=== PATIENT | male | born 1975 | race Caucasian/White ===

== ENCOUNTER 2016-05-24 19:32 | Emergency (ER) | payer OTHER ==
[~2016-05-24 19:32] MED LIST: AMOXICILLIN500 M1 PO; BUPROPION HCL150 MG PO; CATAFLAM50 MG PO; CIPRO XR500 MG; CIPRO500 M1 PO; CIPRO500 M2 PO; CLINDAMYCIN HC300 M2 PO; COMPAZINE10 M PO; COMPAZINE10 MG PO; DICLOFENAC SODI50 MG PO; DICLOFENAC SODI75 MG PO; DOLACET 5/500 C1 CAP; FLEXERIL10 MG PO; FLOMAX0.4 M1 PO; FLOMAX0.4 MG PO; HYDROCHLOROTH12.5 M1 PO; HYDROCHLOROTH12.5 MG PO; HYDROCHLOROTHIA25 MG PO; IBUPROFEN200 M1 PO; LIPITOR10 MG; LIPITOR10 MG PO; LISINOPRIL10 MG; METOPROLOL TART25 M1 PO; MOTRIN600 MG PO; NO MEDS; NORCO 5-325 TA1 EACH PO; NORCO 5/325 TAB1 TAB PO; OXYCODONE/APAP PO; PENICILLIN V P500 M1 PO; PERCOCET 5-3251 EACH PO; PERCOCET 5/3251 TAB PO; PERCOCET 5MG/AP1 TAB PO; TAMSULOSIN HCL0.4 MG PO; TRAMADOL HCL50 MG PO; ULTRAM50 M1 PO; VITAMIN D50000 UNIT PO; VOLTAREN75 MG; VOLTAREN75 MG PO; ZESTRIL10 M3 PO; ZOFRAN ODT4 MG/UDTAB PO; ZOFRAN4 M1 PO; ZOFRAN4 MG PO
[2016-05-24] MEDS ORDERED: TOPROL XL50 M1 PO (19:39)
[2016-05-24 20:33] LABS: URINE BILIRUBIN NEGATIVE (NEG); URINE BLOOD NEGATIVE (NEG); URINE GLUCOSE (UA) NEGATIVE (NEG); URINE KETONE NEGATIVE (NEG); URINE LEUKOCYTE ESTERASE NEGATIVE (NEG); URINE NITRITE NEGATIVE (NEG); URINE PROTEIN NEGATIVE (NEG)
[2016-05-24 20:35] LABS: URINE APPEARANCE CLEAR; URINE COLOR YELLOW
[2016-05-24] MEDS ORDERED: NORCO 5-325 TA1 EACH PO (21:39)
[2016-08-26] MEDS ORDERED: PERCOCET 5-3251 EACH PO (23:58)
[2016-10-04] MEDS ORDERED: PERCOCET 5-3251 EACH PO (23:06)
[2016-10-11] MEDS ORDERED: CYCLOBENZAPRINE5 M1 PO (16:53)
[2016-10-11] MEDS ORDERED: NORCO 5/3251 TAB PO (16:53)
[2016-10-11] MEDS ORDERED: IBUPROFEN800 M1 PO (16:53)
== END 2016-05-24 22:07 ==
LOC: EDMED 19:32
PROVIDERS: Physician Assistant
DX: K56.7 Ileus, unspecified (principal); I10 Essential (primary) hypertension; Z87.442 Personal history of urinary calculi; Z79.899 Other long term (current) drug therapy; Z98.890 Other specified postprocedural states
CPT/HCPCS: J1170; J2270; J2405; J7030

== ENCOUNTER 2016-08-02 20:51 | Emergency (ER) | payer OTHER ==
[~2016-08-02 20:51] MED LIST changes: +TOPROL XL50 M1 PO
[2016-08-02 21:32] LABS: BASO % 0.2 % (0-2); EOS % 1.4 % (0-7); EOSINOPHIL ABSOLUTE COUNT 0.1 tho/cmm (0.0-0.7); HCT-HEMATOCRIT 42.4 % (36.0-53.5); HGB-HEMOGLOBIN 14.9 gm/dl (13.5-17.0); IMMATURE GRANULOCYTES ABSOLUTE 0.01 tho/cmm (0-0.03); IMMATURE GRANULOCYTES PERCENT 0.2 % (0-0.3); LYMPH % 32.2 % (20-45); MCH (MEAN CORPUSCULAR HGB) 31.9 pg (28.0-32.0); MCHC MEAN CORPUSCULAR HGB CONC 35.1 % (32.0-36.0); MCV (MEAN CELL VOLUME) 90.8 fl (82.0-96.0); MEAN PLATELET VOLUME 9.8 cmc (9.4-12.4); MONO % 9.4 % (0-12); MONOCYTE ABSOLUTE COUNT 0.6 tho/cmm (0.0-1.2); NEUTROPHIL ABSOLUTE COUNT 3.5 tho/cmm (1.6-8.0); NEUTROPHIL-AUTOMATED 3.5 tho/cmm (1.6-8.0); NEUTROPHILS % 56.6 % (40-80); PLATELET COUNT 229 tho/cmm (150-450); RED BLOOD COUNT 4.67 mil/cmm (4.40-5.70); RED CELL DISTRIBUTION WIDTH 13.3 % (12.4-16.4); WHITE BLOOD COUNT 6.3 tho/cmm (4.0-10.0)
[2016-08-02 21:43] LABS: ANION GAP 12 mmol/L (0-20); BLOOD UREA NITROGEN 14 mg/dl (6-24); CALCIUM 8.8 mg/dl (8.5-10.5); CARBON DIOXIDE-VENOUS 25 mmol/L (22-32); CHLORIDE 104 mmol/l (96-110); GLUCOSE 97 mg/dL (70-110); POTASSIUM 3.9 mmol/L (3.7-5.1); SODIUM 137 mmol/L (135-145); eGFR VALUE FOR BLACK 86 mL/Min
[2016-08-02 22:10] LABS: URINE BILIRUBIN NEGATIVE (NEG); URINE BLOOD NEGATIVE (NEG); URINE GLUCOSE (UA) NEGATIVE (NEG); URINE KETONE NEGATIVE (NEG); URINE LEUKOCYTE ESTERASE NEGATIVE (NEG); URINE NITRITE NEGATIVE (NEG); URINE PROTEIN NEGATIVE (NEG); URINE SPECIFIC GRAVITY 1.015 (1.003-1.030)
[2016-08-02 22:12] LABS: URINE APPEARANCE HAZY; URINE COLOR YELLOW
[2016-08-26] MEDS ORDERED: PERCOCET 5-3251 EACH PO (23:58)
[2016-10-04] MEDS ORDERED: PERCOCET 5-3251 EACH PO (23:06)
[2016-10-11] MEDS ORDERED: IBUPROFEN800 M1 PO (16:53)
[2016-10-11] MEDS ORDERED: NORCO 5/3251 TAB PO (16:53)
[2016-10-11] MEDS ORDERED: CYCLOBENZAPRINE5 M1 PO (16:53)
== END 2016-08-02 23:25 ==
LOC: EDMED 20:51
PROVIDERS: Physician Assistant
DX: N23 Unspecified renal colic (principal); I10 Essential (primary) hypertension; Z96.0 Presence of urogenital implants; F17.200 Nicotine dependence, unspecified, uncomplicated
CPT/HCPCS: J1170; J1885; J7030

== ENCOUNTER 2016-10-31 19:40 | Emergency (ER) | payer SELFPAY ==
[~2016-10-31] VITALS: Ht 175.3 cm; Wt 147.7 kg
[~2016-10-31 19:40] MED LIST changes: +CYCLOBENZAPRINE5 M1 PO; +IBUPROFEN800 M1 PO; +NORCO 5/3251 TAB PO
[2016-10-31 21:08] LABS: URINE APPEARANCE HAZY; URINE BILIRUBIN NEGATIVE (NEG); URINE BLOOD LARGE (NEG); URINE COLOR YELLOW; URINE GLUCOSE (UA) NEGATIVE (NEG); URINE KETONE NEGATIVE (NEG); URINE LEUKOCYTE ESTERASE POSITIVE (NEG); URINE NITRITE NEGATIVE (NEG); URINE PROTEIN MODERATE (NEG); URINE SPECIFIC GRAVITY 1.025 (1.003-1.030)
[2016-10-31 21:12] LABS: URINE MUCUS 1+
[2016-10-31 21:13] LABS: URINE EPITHELIAL CELLS 0-2 /[HPF] (0-10); URINE RBC 90-120 /[HPF] (0-5)
[2016-10-31 21:20] LABS: BASO % 0.2 % (0-2); EOS % 1.8 % (0-7); EOSINOPHIL ABSOLUTE COUNT 0.1 tho/cmm (0.0-0.7); HCT-HEMATOCRIT 42.6 % (36.0-53.5); HGB-HEMOGLOBIN 14.8 gm/dl (13.5-17.0); IMMATURE GRANULOCYTES ABSOLUTE 0.01 tho/cmm (0-0.03); IMMATURE GRANULOCYTES PERCENT 0.2 % (0-0.3); LYMPH % 30.9 % (20-45); LYMPH ABSOLUTE COUNT 1.9 tho/cmm (0.8-4.5); MCH (MEAN CORPUSCULAR HGB) 31.5 pg (28.0-32.0); MCHC MEAN CORPUSCULAR HGB CONC 34.7 % (32.0-36.0); MCV (MEAN CELL VOLUME) 90.6 fl (82.0-96.0); MEAN PLATELET VOLUME 9.6 cmc (9.4-12.4); MONO % 9.5 % (0-12); MONOCYTE ABSOLUTE COUNT 0.6 tho/cmm (0.0-1.2); NEUTROPHIL ABSOLUTE COUNT 3.6 tho/cmm (1.6-8.0); NEUTROPHIL-AUTOMATED 3.6 tho/cmm (1.6-8.0); NEUTROPHILS % 57.4 % (40-80); PLATELET COUNT 221 tho/cmm (150-450); RED CELL DISTRIBUTION WIDTH 13.9 % (12.4-16.4); WHITE BLOOD COUNT 6.2 tho/cmm (4.0-10.0)
[2016-10-31 21:31] LABS: ANION GAP 9 mmol/L (0-20); BLOOD UREA NITROGEN 14 mg/dl (6-24); CALCIUM 9.1 mg/dl (8.5-10.5); CARBON DIOXIDE-VENOUS 27 mmol/L (22-32); CHLORIDE 105 mmol/l (96-110); CREATININE 0.82 mg/dl (0.60-1.30); GLUCOSE 107 mg/dL (70-110); POTASSIUM 4.3 mmol/L (3.7-5.1); SODIUM 137 mmol/L (135-145); eGFR VALUE FOR BLACK >90 mL/Min
[2016-10-31] MEDS ORDERED: ZOFRAN4 M2 PO (23:52)
[2016-10-31] MEDS ORDERED: NORCO 5/3251 TAB PO (23:52)
== END 2016-11-01 00:15 ==
LOC: EDMED 19:40
PROVIDERS: Emergency Medicine
PROC: BW41ZZZ Ultrasonography of Abdomen and Pelvis (ICD-10-PCS; principal; 2016-10-31)
DX: N20.0 Calculus of kidney (principal)
CPT/HCPCS: J1170; J1885; J2270; J2405; J7030

== ENCOUNTER 2016-11-06 15:19 | Emergency (ER) | payer SELFPAY ==
[~2016-11-06] VITALS: Ht 176.5 cm; Wt 150.0 kg
[~2016-11-06 15:19] MED LIST changes: +ZOFRAN4 M2 PO
[2016-11-06 17:32] LABS: URINE APPEARANCE HAZY; URINE BILIRUBIN NEGATIVE (NEG); URINE BLOOD LARGE (NEG); URINE COLOR YELLOW; URINE GLUCOSE (UA) NEGATIVE (NEG); URINE KETONE NEGATIVE (NEG); URINE LEUKOCYTE ESTERASE POSITIVE (NEG); URINE NITRITE NEGATIVE (NEG); URINE PROTEIN NEGATIVE (NEG)
[2016-11-06 17:37] LABS: URINE RBC 20-25 /[HPF] (0-5)
[2016-11-06 17:38] LABS: URINE EPITHELIAL CELLS 0 /[HPF] (0-10); URINE WBC 0-1 /[HPF] (0-5)
[2016-11-06 17:40] LABS: BASO % 0.1 % (0-2); EOS % 1.3 % (0-7); EOSINOPHIL ABSOLUTE COUNT 0.1 tho/cmm (0.0-0.7); HGB-HEMOGLOBIN 14.8 gm/dl (13.5-17.0); IMMATURE GRANULOCYTES ABSOLUTE 0.01 tho/cmm (0-0.03); IMMATURE GRANULOCYTES PERCENT 0.1 % (0-0.3); LYMPH % 17.2 % (20-45); LYMPH ABSOLUTE COUNT 1.2 tho/cmm (0.8-4.5); MCH (MEAN CORPUSCULAR HGB) 31.1 pg (28.0-32.0); MCHC MEAN CORPUSCULAR HGB CONC 34.4 % (32.0-36.0); MCV (MEAN CELL VOLUME) 90.3 fl (82.0-96.0); MEAN PLATELET VOLUME 9.6 cmc (9.4-12.4); MONO % 8.4 % (0-12); MONOCYTE ABSOLUTE COUNT 0.6 tho/cmm (0.0-1.2); NEUTROPHILS % 72.9 % (40-80); PLATELET COUNT 221 tho/cmm (150-450); RED BLOOD COUNT 4.76 mil/cmm (4.40-5.70); RED CELL DISTRIBUTION WIDTH 13.6 % (12.4-16.4); WHITE BLOOD COUNT 6.9 tho/cmm (4.0-10.0)
[2016-11-06 17:55] LABS: ANION GAP 12 mmol/L (0-20); BLOOD UREA NITROGEN 12 mg/dl (6-24); CALCIUM 8.6 mg/dl (8.5-10.5); CARBON DIOXIDE-VENOUS 25 mmol/L (22-32); CHLORIDE 106 mmol/l (96-110); GLUCOSE 90 mg/dL (70-110); SODIUM 139 mmol/L (135-145); eGFR VALUE FOR BLACK >90 mL/Min
[2016-11-06] MEDS ORDERED: IBUPROFEN600 M1 PO (18:27)
== END 2016-11-06 18:41 ==
LOC: EDMED 15:19
PROVIDERS: Emergency Medicine
DX: R10.9 Unspecified abdominal pain (principal); I10 Essential (primary) hypertension; F17.200 Nicotine dependence, unspecified, uncomplicated; Z87.442 Personal history of urinary calculi; Z79.899 Other long term (current) drug therapy
CPT/HCPCS: J1885; J2270; J2405